=== PATIENT | male | born 2000 | race African-American/Black ===

== ENCOUNTER 2020-03-04 18:09 | Emergency (ER) | payer OTHER ==
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
== END 2020-03-04 19:35 | disposition home or self-care (01) ==
LOC: EDBD 18:09 → MADERS 18:09
DX: S70.02XA Contusion of left hip, initial encounter (principal); V89.2XXA Person injured in unspecified motor-vehicle accident, traffic, initial encounter
CPT/HCPCS: 71046